=== PATIENT | male | born 1980 | race Caucasian/White ===

== ENCOUNTER → 2017-09-14 15:17 | Outpatient (CLI) | payer MEDICAID ==
[2017-09-16 03:09] LABS: TESTOSTERONE - FREE 6.1 pg/mL (8.7-25.1); TESTOSTERONE - SERUM 312 ng/dL (264-916)
== END | disposition home or self-care (01) ==
LOC: D.LAB 15:17
PROVIDERS: Urology
DX: R68.82 Decreased libido (principal)